=== PATIENT | female | born 1950 ===

== ENCOUNTER 2019-07-22 10:01 | Emergency (ER) | payer MEDICARE ==
[2019-07-22 10:49] VITALS: BP 163/90
--- NOTE | 2019-07-22 11:26 | UC ---
Complaint Female HPI - HPI Summary HPI Summary: ONSET THIS MORNING OF DYSURIA, FREQUENCY AND URGENCY. PATIENT REPORTS SHE GETS THE OCCASIONAL UTI AND THIS FEELS THE SAME. NO FEVER, NAUSEA, BACK PAIN. - History Of Current Complaint Chief Complaint: UCGU Stated Complaint: URINARY ISSUE Time Seen by Provider: 07/22/19 10:40 Hx Obtained From: Patient Onset/Duration: Gradual Onset, Lasting Hours, Still Present Timing: Constant Severity Initially: Mild Severity Currently: Mild Pain Intensity: 1 Pain Scale Used: 0-10 Numeric Character: Burning Aggravating Factor(s): Urination Alleviating Factor(s): Nothing Associated Signs And Symptoms: Positive: Negative - Allergies/Home Medications Allergies/Adverse Reactions: Allergies Allergy/AdvReac Type Severity Reaction Status Date / Time sulfamethoxazole Allergy Hives Verified 07/22/19 10:50 [From Bactrim] trimethoprim [From Bactrim] Allergy Hives Verified 07/22/19 10:50 Home Medications: Home Medications Atenolol TAB* [Tenormin TAB* 50 MG] 1 tab PO DAILY 07/22/19 [History Confirmed 07/22/19] Cephalexin CAP* [Keflex 500 CAP*] 500 mg PO BID #10 cap 07/22/19 [Rx] Fluticasone HFA 110 mcg(NF) [Flovent HFA 110 mcg(NF)] 2 puff .ROUTE DAILY [History Confirmed 07/22/19] Quinapril HCl 1 tab PO DAILY 07/22/19 [History Confirmed 07/22/19] Simvastatin [Zocor 5 MG-] 1 tab PO DAILY 07/22/19 [History Confirmed 07/22/19] estradioL [Estradiol] 5 mg PO DAILY 07/22/19 [History Confirmed 07/22/19] medroxyPROGESTERone TAB* [Provera TAB*] 1.5 mg PO DAILY 07/22/19 [History Confirmed 07/22/19] PMH/Surg Hx/FS Hx/Imm Hx Cardiovascular History: Hypertension - Surgical History Surgical History: Yes Surgery Procedure, Year, and Place: left arm,bunion - Family History Known Family History: Positive: Hypertension - Social History Alcohol Use: None Substance Use Type: None Smoking Status (MU): Never Smoked Tobacco Review of Systems All Other Systems Reviewed And Are Negative: Yes Constitutional: Positive: Negative Respiratory: Positive: Negative Cardiovascular: Positive: Negative Gastrointestinal: Positive: Negative Genitourinary: Positive: Dysuria, Frequency, Urgency Physical Exam Triage Information Reviewed: Yes Appearance: Well-Appearing, No Pain Distress, Well-Nourished Vital Signs: Initial Vital Signs Temp 99.2 F 07/22/19 10:46 Pulse 87 07/22/19 10:46 Resp 16 07/22/19 10:46 BP 163/90 07/22/19 10:46 Pulse Ox 99 07/22/19 10:46 Laboratory Tests 07/22/19 10:59 POC Urine Color Yellow POC Urine Clarity Clear POC Urine pH 6.0 POC Ur Specif Hagerman 1.010 POC Urine Protein Negative POC Ur Glucose (UA) Negative POC Urine Ketones Negative POC Urine Blood 1+ A POC Urine Nitrite Negative POC Urine Bilirubin Negative POC Urine Urobilinogen 0.2 POC U Leukocyte Esteras Trace A Vital Signs Reviewed: Yes Eyes: Positive: Conjunctiva Clear ENT: Positive: Hearing grossly normal Neck: Positive: Supple Respiratory: Positive: No respiratory distress, No accessory muscle use Musculoskeletal: Positive: No Edema Neurological: Positive: Alert Psychological: Positive: Age Appropriate Behavior Skin: Negative: Rashes Complaint Female Dx - Differential Dx/Diagnosis Provider Diagnosis: UTI (urinary tract infection) Discharge ED - Sign-Out/Discharge Documenting (check all that apply): Patient Departure All imaging exams completed and their final reports reviewed: No Studies - Discharge Plan Condition: Stable Disposition: HOME Prescriptions: Cephalexin CAP* [Keflex 500 CAP*] 500 mg PO BID #10 cap Patient Education Materials: Urinary Tract Infection in Women (ED) Referrals: Kwasi Pozo MD [Primary Care Provider] - If Needed Additional Instructions: URINE TEST SUGGESTIVE OF UTI. TAKE THE ANTIBIOTICS TWICE DAILY FOR THE FULL 5 DAYS. A SPECIMEN HAS BEEN SENT FOR CULTURE AND WE WILL CALL YOU IF YOUR MEDICATION NEEDS TO BE CHANGED. STAY WELL HYDRATED. - Billing Disposition and Condition Condition: STABLE Disposition: Home
--- NOTE | 2019-07-24 08:32 | UC ---
- Progress Note Progress Note: Please call to advise that urine culture showed mixed bacteria which looked like a contaminated sample. If she has persistent symptoms, she should follow up with her primary care for evaluation. In addition, she had red blood cells in her urine. This might not be a problem, but she should have a re-check of her urine with her PMD. Course/Dx - Diagnoses Provider Diagnoses: UTI (urinary tract infection) Discharge ED - Sign-Out/Discharge Documenting (check all that apply): Post-Discharge Follow Up All imaging exams completed and their final reports reviewed: No Studies - Discharge Plan Condition: Stable Disposition: HOME Prescriptions: Cephalexin CAP* [Keflex 500 CAP*] 500 mg PO BID #10 cap Patient Education Materials: Urinary Tract Infection in Women (ED) Referrals: Kwasi Pozo MD [Primary Care Provider] - If Needed Additional Instructions: URINE TEST SUGGESTIVE OF UTI. TAKE THE ANTIBIOTICS TWICE DAILY FOR THE FULL 5 DAYS. A SPECIMEN HAS BEEN SENT FOR CULTURE AND WE WILL CALL YOU IF YOUR MEDICATION NEEDS TO BE CHANGED. STAY WELL HYDRATED. - Billing Disposition and Condition Condition: STABLE Disposition: Home
== END 2019-07-22 11:25 | disposition home or self-care (01) ==
LOC: UCEAST 10:01
DX: N39.0 Urinary tract infection, site not specified (principal); Z88.2 Allergy status to sulfonamides; I10 Essential (primary) hypertension; Z79.899 Other long term (current) drug therapy
CPT/HCPCS: 81003; 87086; 99202; G0463